=== PATIENT | female | born 1995 | race Caucasian/White ===

== ENCOUNTER → 2018-02-28 09:29 | Outpatient (CLI) | payer OTHER, SELFPAY ==
[2018-02-28 10:47] LABS: Follicle Stimulating Hormone 5.6 mIU/mL; Luteinizing Hormone 17.1 mIU/mL; Prolactin 9.1 ng/mL; T4 Free Direct 1.05 ng/dL (0.76-1.46); Thyroid Stim Hormone (TSH) 1.63 uIU/mL (0.358-3.74)
[2018-02-28 13:45] LABS: hCG Titer Quant., Serum < 1 mIU/mL (<9 non-preg)
[2018-03-04 15:30] LABS: DHEA Sulfate 656.5 ug/dL (110.0-431.7); Testosterone, % Free 2.48 % (0.50-2.80); Testosterone, Free 1.81 ng/dL (0.10-0.85); Testosterone, Total 73 ng/dL (8-48)
[2018-03-05 10:28] LABS: Sex Hormone-binding Globulin 29.8 nmol/L (24.6-122.0)
== END ==
PROVIDERS: Family Provider Family Medicine; PCP Family Medicine; Visit Provider Dermatology
DX: E28.2 Polycystic ovarian syndrome (principal); L70.0 Acne vulgaris; L68.9 Hypertrichosis, unspecified; L21.8 Other seborrheic dermatitis
CPT/HCPCS: 36415; 82627; 83001; 83002; 84146; 84270; 84402; 84403; 84439; 84443; 84702; 82626

== ENCOUNTER → 2018-06-03 14:08 | Outpatient (CLI) | payer OTHER, SELFPAY ==
[2018-06-03 15:15] LABS: Potassium 4.1 mmol/L (3.5-5.1)
== END ==
PROVIDERS: Family Provider Family Medicine; PCP Family Medicine; Referring Provider Dermatology; Visit Provider Dermatology
DX: L70.0 Acne vulgaris (principal)
CPT/HCPCS: 36415; 84132

== ENCOUNTER → 2019-01-22 | Outpatient (CLI) | payer BC, SELFPAY ==
[2019-01-22 08:32] VITALS: BMI 37.0
[2019-01-29 15:56] LABS: HPV Reflexed? NOT INDICATED
== END | disposition home or self-care (01) ==
LOC: LABSPEC 17:18
PROVIDERS: Family Provider Family Medicine; PCP Family Medicine; Referring Provider Obstetrics & Gynecology; Visit Provider Obstetrics & Gynecology
DX: Z12.4 Encounter for screening for malignant neoplasm of cervix (principal)
CPT/HCPCS: 87624; 88175; G0145

== ENCOUNTER → 2020-05-14 11:15 | Outpatient (CLI) | payer OTHER, SELFPAY ==
[2019-05-31 08:16] VITALS: BMI 37.0
[2020-05-14 13:03] LABS: Potassium 4.3 mmol/L (3.5-5.1)
== END ==
PROVIDERS: PCP Family Medicine; Referring Provider Dermatology; Visit Provider Dermatology
DX: L70.0 Acne vulgaris (principal); Z79.899 Other long term (current) drug therapy
CPT/HCPCS: 36415; 84132

== ENCOUNTER 2020-12-08 14:29 | Outpatient (RCR) | payer OTHER, SELFPAY ==
[2020-06-16 11:36] VITALS: BMI 40.1
== END 2021-02-08 23:59 ==
LOC: IMMUN 14:29
PROVIDERS: PCP Family Medicine; Referring Provider Family Medicine; Visit Provider Family Medicine
DX: Z23 Encounter for immunization (principal)
CPT/HCPCS: 0001A; 0002A; 91300

== ENCOUNTER → 2021-06-24 | Outpatient (CLI) | payer BC, SELFPAY ==
[2021-06-28 14:57] LABS: HPV Reflexed? NOT INDICATED
== END | disposition home or self-care (01) ==
LOC: LABSPEC 12:19
PROVIDERS: PCP Family Medicine; Referring Provider Obstetrics & Gynecology; Visit Provider Obstetrics & Gynecology
DX: Z12.4 Encounter for screening for malignant neoplasm of cervix (principal)
CPT/HCPCS: 88175; G0145

== ENCOUNTER → 2023-09-17 | Outpatient (CLI) | payer OTHER, SELFPAY ==
[2023-09-21 22:54] LABS: HPV Reflexed? NOT INDICATED
== END | disposition home or self-care (01) ==
LOC: LABSPEC 13:23
PROVIDERS: PCP Family Medicine; Referring Provider Obstetrics & Gynecology; Visit Provider Obstetrics & Gynecology
DX: Z12.4 Encounter for screening for malignant neoplasm of cervix (principal)
CPT/HCPCS: 88175; G0145

== ENCOUNTER → 2024-01-04 | Outpatient (CLI) | payer OTHER, SELFPAY ==
[2024-01-04 10:02] LABS: Absolute Lymphocyte Count 2.54 X10^3/uL (0.83-4.51); Basophil# 0.04 X10^3/uL; Basophil% 0.5 % (0-1); Eosinophil# 0.09 X10^3/uL; Eosinophils% 1.1 % (0-5); Hematocrit 44.3 % (37-47); Hemoglobin 14.2 g/dL (12.0-15.0); Lymphocyte # 2.54 X10^3/ul (0.83-4.51); Lymphocyte % 31.6 % (19-41); Mean Corp Hgb Conc 32.1 g/dL (32-36); Mean Corpuscular Hgb 26.6 pg (27.0-32.0); Mean Corpuscular Volume 83.1 fL (81-99); Mean Platelet Vol. 8.8 fl (6.2-12.0); Monocyte# 0.39 X10^3/uL; Monocyte% 4.8 % (0-10); NRBC Flagged by Analyzer 0 % (0-5); Neutrophil # 4.96 X10^3/uL (2.7-7.7); Neutrophil % 61.6 % (47-70); Platelet Count 323 K/mm3 (150-450); RBC Distribution Width CV 12.9 % (11.6-14.6); RBC Distribution Width SD 38.7 fl (35.1-43.9); Red Blood Count 5.33 M/mm3 (4.2-5.4); White Blood Count 8.1 K/mm3 (4.4-11.0)
[2024-01-04 10:27] LABS: ALB/GLOB Ratio 0.8 RATIO (0.9-2.4); AST(SGOT) 23 U/L (15-37); Alanine Aminotransfer ALT/SGPT 40 U/L (13-56); Albumin, Serum 3.7 g/dL (3.2-5.0); Alkaline Phosphatase 92 U/L (45-117); Anion Gap 8 (5-15); BUN 10 mg/dL (7-18); BUN/Creat Ratio 12.9 RATIO (10-20); Calcium,Total 9.8 mg/dL (8.5-10.1); Chloride 105 mmol/L (98-107); Cholesterol 239 mg/dL (200); Creatinine, Serum 0.78 mg/dL (0.55-1.02); EST Glomerular Filtration Rate 95 mL/min (>60); Est Glom Filt Rate - Afr Amer 115 mL/min (>60); Globulin 4.6 g/dL (2.2-4.2); Glucose 93 mg/dL (74-106); High Density Lipoprotein 48 mg/dL; Potassium 3.6 mmol/L (3.5-5.1); Protein, Total 8.3 g/dL (6.4-8.2); Sodium Level 139 mmol/L (136-145); Triglycerides 130 mg/dL; Very Low Density Lipoprotein 26 mg/dL (5-40)
[2024-01-04 11:24] LABS: Hemoglobin A1c 5.3 % (3.8-5.6)
== END | disposition home or self-care (01) ==
LOC: MTLAB 07:57
PROVIDERS: PCP Family Medicine; Referring Provider Family Medicine; Visit Provider Family Medicine
DX: Z00.00 Encounter for general adult medical examination without abnormal findings (principal); E28.2 Polycystic ovarian syndrome
CPT/HCPCS: 36415; 80053; 80061; 83036; 85025

== ENCOUNTER → 2024-10-13 | Outpatient (CLI) | payer OTHER, SELFPAY ==
[2024-10-13 17:47] LABS: ALB/GLOB Ratio 0.8 RATIO (0.9-2.4); AST(SGOT) 51 U/L (15-37); Alanine Aminotransfer ALT/SGPT 81 U/L (13-56); Albumin, Serum 3.6 g/dL (3.2-5.0); Alkaline Phosphatase 96 U/L (45-117); Anion Gap 7 (5-15); BUN 12 mg/dL (7-18); BUN/Creat Ratio 18.2 RATIO (10-20); Calcium,Total 9.5 mg/dL (8.5-10.1); Chloride 104 mmol/L (98-107); Creatinine, Serum 0.66 mg/dL (0.55-1.02); EST Glomerular Filtration Rate 114 mL/min (>60); Est Glom Filt Rate - Afr Amer 138 mL/min (>60); Globulin 4.3 g/dL (2.2-4.2); Glucose 101 mg/dL (74-106); Potassium 3.7 mmol/L (3.5-5.1); Protein, Total 7.9 g/dL (6.4-8.2); Sodium Level 137 mmol/L (136-145)
[2024-10-13 19:14] LABS: Absolute Lymphocyte Count 1.08 X10^3/uL (0.83-4.51); Absolute Neutrophil Count 2.5 X10^3/uL (2.0-7.7); Basophil# 0.03 X10^3/uL; Basophil% 0.7 % (0-1); Eosinophil# 0.14 X10^3/uL; Eosinophils% 3.1 % (0-5); Hematocrit 41.1 % (37-47); Hemoglobin 13.1 g/dL (12.0-15.0); Lymphocyte # 1.08 X10^3/ul (0.83-4.51); Lymphocyte % 23.9 % (19-41); Mean Corp Hgb Conc 31.9 g/dL (32-36); Mean Corpuscular Hgb 26.7 pg (27.0-32.0); Mean Corpuscular Volume 83.7 fL (81-99); Mean Platelet Vol. 9.4 fl (6.2-12.0); Monocyte# 0.74 X10^3/uL; Monocyte% 16.4 % (0-10); NRBC Flagged by Analyzer 0 % (0-5); Neutrophil # 2.52 X10^3/uL (2.7-7.7); Neutrophil % 55.7 % (47-70); Platelet Count 222 K/mm3 (150-450); RBC Distribution Width CV 12.9 % (11.6-14.6); RBC Distribution Width SD 38.8 fl (35.1-43.9); Red Blood Count 4.91 M/mm3 (4.2-5.4); White Blood Count 4.5 K/mm3 (4.4-11.0)
== END | disposition home or self-care (01) ==
LOC: BWCLAB 15:52
PROVIDERS: PCP Family Medicine; Visit Provider Obstetrics & Gynecology
DX: Z00.00 Encounter for general adult medical examination without abnormal findings (principal); E28.2 Polycystic ovarian syndrome; Z13.29 Encounter for screening for other suspected endocrine disorder; Z13.21 Encounter for screening for nutritional disorder
CPT/HCPCS: 36415; 80053; 82652; 84443; 85025

== ENCOUNTER → 2025-03-25 | Outpatient (CLI) | payer OTHER, SELFPAY ==
--- NOTE | 2025-03-25 09:22 | US_ITS ---
EXAM: DIAG MAMM W/CAD, BILAT; BILAT BRST ROBINSON STAND ALONE; BREAST LIMITED UNILATERAL 03/25/2025 CLINICAL HISTORY: 29-year-old female presents with palpable concern in the right breast. No family history of breast cancer. TECHNIQUE: DIAG MAMM W/CAD, BILAT; BILAT BRST [facility] STAND ALONE; BREAST LIMITED UNILATERAL. COMPARISON: Baseline examination, no priors. FINDINGS: MAMMOGRAM: TISSUE DENSITY: There are scattered areas of fibroglandular density. Right breast: There is a triangle skin marker indicating the area of palpable concern in the upper-outer right breast. Underlying the skin marker are no definite mammographic findings. Left breast: There are no suspicious masses, grouped calcifications or architectural distortions in the left breast. ULTRASOUND: Ultrasound performed of the upper-outer quadrant of the right breast in the area of patient's palpable concern demonstrates an circumscribed oval hypoechoic mass at 10 o'clock 5 cm from the nipple, measuring 0.6 x 0.5 x 0.2 cm. US/Breast Limited Unilateral IMPRESSION: Right breast mass at 10 o'clock is probably benign. Recommend short interval s ix-month follow-up diagnostic ultrasound for further evaluation. OVERALL FINAL ASSESSMENT BI-RADS 3: PROBABLY BENIGN. RECOMMENDATION: 6 Month Follow-up A letter with findings and recommendations will be mailed to the patient. Reading Location: [id number]
--- NOTE | 2025-03-25 10:39 | BI_ITS ---
EXAM: DIAG MAMM W/CAD, BILAT; BILAT BRST ROBINSON STAND ALONE; BREAST LIMITED UNILATERAL 03/25/2025 CLINICAL HISTORY: 29-year-old female presents with palpable concern in the right breast. No family history of breast cancer. TECHNIQUE: DIAG MAMM W/CAD, BILAT; BILAT BRST [facility] STAND ALONE; BREAST LIMITED UNILATERAL. COMPARISON: Baseline examination, no priors. FINDINGS: MAMMOGRAM: TISSUE DENSITY: There are scattered areas of fibroglandular density. Right breast: There is a triangle skin marker indicating the area of palpable concern in the upper-outer right breast. Underlying the skin marker are no definite mammographic findings. Left breast: There are no suspicious masses, grouped calcifications or architectural distortions in the left breast. ULTRASOUND: Ultrasound performed of the upper-outer quadrant of the right breast in the area of patient's palpable concern demonstrates an circumscribed oval hypoechoic mass at 10 o'clock 5 cm from the nipple, measuring 0.6 x 0.5 x 0.2 cm. BI/Bilat Brst Robinson Stand Alone IMPRESSION: Right breast mass at 10 o'clock is probably benign. Recommend short interval s ix-month follow-up diagnostic ultrasound for further evaluation. OVERALL FINAL ASSESSMENT BI-RADS 3: PROBABLY BENIGN. RECOMMENDATION: 6 Month Follow-up A letter with findings and recommendations will be mailed to the patient. Reading Location: [id number]
== END | disposition home or self-care (01) ==
PROVIDERS: PCP Family Medicine; Referring Provider Nurse Practitioner Family; Visit Provider Nurse Practitioner Family
DX: N63.11 Unspecified lump in the right breast, upper outer quadrant (principal)
CPT/HCPCS: 76642; 77062; 77066; G0279

== ENCOUNTER → 2025-06-30 | Outpatient (CLI) | payer OTHER, SELFPAY ==
--- OUTSIDE RECORDS SUMMARY | 2025-06-30 20:13 | XMS RPT_ITS | CCD ---
Author Organization [facility] CliniSysd Care Team Providers Care Manufacturing Recruiter Name Role Phone Dr. Anne Heaton Primary Care Provider [phone] Anne Heaton Referring Provider JESSE Barrow Attending Provider [phone] Dr. nAne Heaton Primary Care Provider [phone] Anne Heaton Referring Provider Dr. Margaux Guthrie Attending Provider Dr. Anne Heaton Primary Care Provider [phone] Anne Heaton Referring Provider Dr. Margaux Guthrie Attending Provider Dr. Bruna Walker MD Primary Care Provider Dr. Bruna Walker MD Referring Provider Janis Jimenez Attending Provider Janis Jimenez Referring Provider Amada CUENCA, Dr. Hope Attending Provider [phone] Jayy Ybarra Attending Unavailable Miedel, Bruna Referring Unavailable Miedel, Bruna Primary Care Unavailable Janis Manzano Attending Unavailable Miedel, Bruna Referring Unavailable Miedel, Bruna Primary Care Unavailable Rita Monroe Attending Unavailable Miedel, Bruna Referring Unavailable Miedel, Bruna Primary Care Unavailable Tigistedel Bruna Attending Unavailable Tigistedel, Bruna Referring Unavailable Miedel, Bruna Primary Care Unavailable Janis Manzano Attending Unavailable Janis Manzano Referring Unavailable [facility] Bruna Primary Care Unavailable Rita Monroe Attending Unavailable [facility] Bruna Primary Care Unavailable [facility] Bruna Primary Care Unavailable MncoraZeinabh Referring Unavailable Steve Barrow Attending Unavailable Medications Current Medications Medication Drug Class(es) Dates Sig (Normalized) Sig (Original) Drospirenone-Ethin yl Estradiol (20 sources) Progestin, Estrogen Start: 10-14-2024 take 3 tablets by mouth once daily Drospirenone-Ethi nyl Estradiol (Vestura (28)) 3-0.02 mg tablet Active 1 {tbl} PO DAILY 84 October 14, 2024 12:01pm Start: 09-22-2024 End: 10-14-2024 take 3 tablets by mouth once daily Drospirenone-Ethinyl Estradiol (Vestura (28)) 3-0.02 mg tablet Discontinued 1 {tbl} PO DAILY 84 September 22, 2024 11:05am October 14, 2024 12:01pm Start: 07-18-2024 End: 09-22-2024 take 3 tablets by mouth once daily Drospirenone-Ethinyl Estradiol (Vestura (28)) 3-0.02 mg tablet Discontinued 1 {tbl} PO DAILY 84 July 18, 2024 11:28am September 22, 2024 11:05am Start: 01-21-2024 End: 07-18-2024 take 3 tablets by mouth once daily Drospirenone-Ethinyl Estradiol (Vestura (28)) 3-0.02 mg tablet Discontinued 1 {tbl} PO DAILY 84 January 21, 2024 4:05pm July 18, 2024 11:28am Start: 09-18-2023 End: 01-21-2024 take 3 tablets by mouth once daily Drospirenone-Ethinyl Estradiol (Vestura (28)) 3-0.02 mg tablet Discontinued 1 {tbl} PO DAILY 90 90 3 September 18, 2023 4:29pm January 21, 2024 4:06pm Start: 09-18-2023 Drospirenone-E thinyl Estradiol (Vestura (28)) 3-0.02 mg tablet Active 1 TABLET PO DAILY 90 90 September 18, 2023 4:29pm Start: 09-18-2023 Drospirenone-E thinyl Estradiol (Vestura (28)) 3-0.02 mg tablet Active 1 TABLET PO DAILY 90 September 18, 2023 3:29pm Start: 09-17-2023 End: 09-18-2023 take 3 tablets by mouth once daily Drospirenone-Ethinyl Estradiol (Vestura (28)) 3-0.02 mg tablet Discontinued 1 {tbl} PO DAILY 90 90 September 17, 2023 12:49pm September 18, 2023 4:29pm Start: 09-17-2023 End: 09-18-2023 Drospirenone-Ethinyl Estradi ol (Vestura (28)) 3-0.02 mg tablet Discontinued 1 TABLET PO DAILY 90 September 17, 2023 12:49pm September 18, 2023 4:29pm Start: 09-17-2023 End: 09-18-2023 Drospirenone-Ethinyl Estradi ol (Vestura (28)) 3-0.02 mg tablet Discontinued 1 TABLET PO DAILY 90 September 17, 2023 11:49am September 18, 2023 3:29pm Start: 01-11-2023 End: 09-17-2023 take 3 tablets by mouth once daily Drospirenone-Ethinyl Estradiol (Vestura (28)) 3-0.02 mg tablet Discontinued 1 {tbl} PO DAILY 90 90 January 11, 2023 9:34am September 17, 2023 12:49pm Start: 01-11-2023 End: 09-17-2023 Drospirenone-Ethinyl Estradi ol (Vestura (28)) 3-0.02 mg tablet Discontinued 1 TABLET PO DAILY 90 January 11, 2023 9:34am September 17, 2023 12:49pm Start: 01-11-2023 End: 09-17-2023 Drospirenone-Ethinyl Estradi ol (Vestura (28)) 3-0.02 mg tablet Discontinued 1 TABLET PO DAILY 90 January 11, 2023 8:34am September 17, 2023 11:49am Start: 08-16-2022 End: 01-11-2023 take 3 tablets by mouth once daily Drospirenone-Ethinyl Estradiol (Vestura (28)) 3-0.02 mg tablet Discontinued 1 {tbl} PO DAILY 90 90 August 16, 2022 10:03am January 11, 2023 9:35am Start: 08-16-2022 End: 01-11-2023 Drospirenone-Ethinyl Estradi ol (Vestura (28)) 3-0.02 mg tablet Discontinued 1 TABLET PO DAILY August 16, 2022 10:03am January 11, 2023 9:35am Start: 08-16-2022 End: 01-11-2023 Drospirenone-Ethinyl Estradi ol (Vestura (28)) 3-0.02 mg tablet Discontinued 1 TABLET PO DAILY August 16, 2022 9:03am January 11, 2023 8:35am Start: 07-03-2022 End: 08-16-2022 Drospirenone-Ethinyl Estradi ol (Vestura (28)) 3-0.02 mg tablet Discontinued 0 .ROUTE .COMPLEX 84 July 03, 2022 2:17pm August 16, 2022 10:04am TAKE 1 TABLET BY MOUTH EVERY DAY Start: 07-03-2022 End: 08-16-2022 Drospirenone-Ethinyl Estradi ol (Vestura (28)) 3-0.02 mg tablet Discontinued 0 .ROUTE .COMPLEX 84 July 03, 2022 2:17pm August 16, 2022 10:04am TAKE 1 TABLET BY MOUTH EVERY DAY Start: 07-03-2022 End: 08-16-2022 Drospirenone-Ethinyl Estradi ol (Vestura (28)) 3-0.02 mg tablet Discontinued 0 .ROUTE .COMPLEX 84 July 03, 2022 1:17pm August 16, 2022 9:04am TAKE 1 TABLET BY MOUTH EVERY DAY Start: 07-03-2022 Drospirenone-E thinyl Estradiol (Vestura (28)) 3-0.02 mg tablet Active 0 .ROUTE .COMPLEX 84 July 03, 2022 1:17pm TAKE 1 TABLET BY MOUTH EVERY DAY Start: 02-07-2022 End: 07-03-2022 Drospirenone-Ethinyl Estradi ol 3-0.02 mg tablet Discontinued 1 {tbl} PO daily 84 4 February 07, 2022 11:16am July 03, 2022 2:17pm Start: 02-07-2022 End: 07-03-2022 take 1 tablet by mouth once daily Drospirenone-Ethinyl Estradiol Discontinued 1 TABLET PO daily 84 February 07, 2022 11:16am July 03, 2022 2:17pm Start: 02-07-2022 End: 07-03-2022 take 1 tablet by mouth once daily Drospirenone-Ethinyl Estradiol Discontinued 1 TABLET PO daily 84 February 07, 2022 10:16am July 03, 2022 1:17pm Start: 06-23-2021 End: 02-07-2022 Drospirenone-Ethinyl Estradi ol 3-0.02 mg tablet Discontinued 1 {tbl} PO daily 84 June 23, 2021 3:55pm February 07, 2022 11:22am Start: 06-23-2021 End: 02-07-2022 take 1 tablet by mouth once daily Drospirenone-Ethinyl Estradiol Discontinued 1 TABLET PO daily 84 June 23, 2021 3:55pm February 07, 2022 11:22am Start: 06-23-2021 End: 02-07-2022 take 1 tablet by mouth once daily Drospirenone-Ethinyl Estradiol Discontinued 1 TABLET PO daily 84 June 23, 2021 2:55pm February 07, 2022 10:22am Start: 06-16-2020 End: 06-23-2021 take 3 tablets by mouth once daily Drospirenone-Ethinyl Estradiol (Gianvi (28)) 3-0.02 mg tablet Discontinued 1 {tbl} PO daily 84 June 16, 2020 11:48am June 23, 2021 3:55pm Start: 06-16-2020 End: 06-23-2021 Drospirenone-Ethinyl Estradi ol (Gianvi (28)) 3-0.02 mg tablet Discontinued 1 TABLET PO daily June 16, 2020 11:48am June 23, 2021 3:55pm Start: 06-16-2020 End: 06-23-2021 Drospirenone-Ethinyl Estradi ol (Gianvi (28)) 3-0.02 mg tablet Discontinued 1 TABLET PO daily June 16, 2020 10:48am June 23, 2021 2:55pm Start: 03-23-2020 End: 06-16-2020 take 3 tablets by mouth once daily Drospirenone-Ethinyl Estradiol (Gianvi (28)) 3-0.02 mg tablet Discontinued 1 {tbl} PO daily 84 March 23, 2020 7:43am June 16, 2020 11:50am Start: 03-23-2020 End: 06-16-2020 Drospirenone-Ethinyl Estradi ol (Gianvi (28)) 3-0.02 mg tablet Discontinued 1 TABLET PO daily March 23, 2020 7:43am June 16, 2020 11:50am Start: 03-23-2020 End: 06-16-2020 Drospirenone-Ethinyl Estradi ol (Gianvi (28)) 3-0.02 mg tablet Discontinued 1 TABLET PO daily March 23, 2020 6:43am June 16, 2020 10:50am Start: 02-28-2019 End: 03-23-2020 take 3 tablets by mouth once daily Drospirenone-Ethinyl Estradiol (Gianvi (28)) 3-0.02 mg tablet Discontinued 1 {tbl} PO daily 84 February 28, 2019 10:45am March 23, 2020 7:43am Start: 02-28-2019 End: 03-23-2020 Drospirenone-Ethinyl Estradi ol (Gianvi (28)) 3-0.02 mg tablet Discontinued 1 TABLET PO daily February 28, 2019 10:45am March 23, 2020 7:43am Start: 02-28-2019 End: 03-23-2020 Drospirenone-Ethinyl Estradi ol (Gianvi (28)) 3-0.02 mg tablet Discontinued 1 TABLET PO daily February 28, 2019 9:45am March 23, 2020 6:43am Start: 11-28-2018 End: 02-28-2019 take 3 tablets by mouth once daily Drospirenone-Ethinyl Estradiol (Gianvi (28)) 3-0.02 mg tablet Discontinued 1 {tbl} PO daily November 28, 2018 4:27pm February 28, 2019 10:45am Start: 11-28-2018 End: 02-28-2019 Drospirenone-Ethinyl Estradi ol (Gianvi (28)) 3-0.02 mg tablet Discontinued 1 TABLET PO daily November 28, 2018 4:27pm February 28, 2019 10:45am Start: 11-28-2018 End: 02-28-2019 Drospirenone-Ethinyl Estradi ol (Gianvi (28)) 3-0.02 mg tablet Discontinued 1 TABLET PO daily November 28, 2018 3:27pm February 28, 2019 9:45am Start: 11-06-2018 End: 11-28-2018 take 3 tablets by mouth once daily Drospirenone-Ethinyl Estradiol (Gianvi (28)) 3-0.02 mg tablet Discontinued 1 {tbl} PO daily November 06, 2018 1:00am November 28, 2018 4:27pm Start: 11-06-2018 End: 11-28-2018 Drospirenone-Ethinyl Estradi ol (Gianvi (28)) 3-0.02 mg tablet Discontinued 1 TABLET PO daily November 06, 2018 1:00am November 28, 2018 4:27pm Start: 11-06-2018 End: 11-28-2018 Drospirenone-Ethinyl Estradi ol (Gianvi (28)) 3-0.02 mg tablet Discontinued 1 TABLET PO daily November 06, 2018 12:00am November 28, 2018 3:27pm Completed/Discontinued Medications Medication Drug Class(es) Dates Sig (Normalized) Sig (Original) benzonatate 100 mg oral capsule (3 sources) Non-narcotic Antitussive Start: 4 End: 5 take 2 capsules by mouth three times daily as needed for cough Benzonatate 100 mg capsule Discontinued 200 mg PO THREE TIMES A DAY as needed for cough 30 July 10, 2024 1:00am October 13, 2024 4:06pm cephalexin 500 mg oral capsule (7 sources) Cephalosporin Antibacterial Start: 2 End: 2 take 1 capsule by mouth every twelve hours Cephalexin 500 mg capsule Discontinued 500 mg PO Q12H 20 10 October 10, 2021 1:00am October 19, 2021 1:00am October 20, 2021 1:03am dexamethasone 6 mg oral tablet (3 sources) Corticosteroid Start: 4 End: 5 take 1 tablet by mouth once daily Dexamethasone 6 mg tablet Discontinued 6 mg PO DAILY 5 0 July 10, 2024 1:00am October 13, 2024 4:06pm methylPREDNISolone 4 mg oral tablet (3 sources) Corticosteroid Start: 4 End: 4 take 1 tablet by mouth once Methylprednisolone (Medrol (Jamie)) 4 mg tablets,dose pack Discontinued 4 mg PO per package directions 21 6 0 May 23, 2024 12:00am May 28, 2024 12:00am May 29, 2024 12:07am naproxen 500 mg oral tablet (12 sources) Nonsteroidal Anti-inflammatory Drug Start: 4 End: 5 take 1 tablet by mouth twice daily as needed for pain Naproxen 500 mg tablet Discontinued 500 mg PO TWICE A DAY as needed for pain 60 4 September 17, 2023 12:49pm October 13, 2024 4:07pm administer with food or milk Start: 06-16-2020 End: 06-23-2021 take 1 tablet by mouth twice daily as needed for pain Naproxen 500 mg tablet Discontinued 500 mg PO TWICE A DAY as needed for pain 60 4 June 16, 2020 12:00am June 23, 2021 3:17pm administer with food or milk spironolactone 50 mg oral tablet (20 sources) Aldosterone Antagonist Start: 06-16-2020 End: 10-14-2024 take 1 tablet by mouth twice daily Spironolactone 50 mg tablet Discontinued 50 mg PO TWICE A DAY 180 4 October 01, 2024 3:29pm October 14, 2024 12:02pm Start: 01-22-2019 End: 06-16-2020 take 1 tablet by mouth once daily Spironolactone 100 mg tablet Discontinued 100 mg PO DAILY January 22, 2019 12:00am June 16, 2020 11:49am sulfacetamide sodium 100 mg/ml ophthalmic solution (7 sources) Sulfonamide Antibacterial Start: 03-11-2019 End: 03-18-2019 Sulfacetamide Sodium (Bleph-10) 10 % drops Discontinued 1 NMA OPHTHALMIC Q3H 15 7 0 March 11, 2019 12:00am March 17, 2019 12:00am March 18, 2019 12:07am Start: 03-11-2019 End: 03-18-2019 Sulfacetamide Sodium (Bleph- 10) 10 % drops Discontinued 1 DRP OPHTHALMIC Q3H 15 7 March 11, 2019 12:00am March 18, 2019 12:07am Problems Active Problems Problem Classification Problem Date Documented Da te Episodic/Chronic Acute bronchitis (3 sources) Acute bronchitis; Translations: [Acute bronchitis, unspecified] 07-11-2024 Episodic Anxiety disorders (4 sources) Anxiety; Translations: [Anxiety disorder, unspecified] Onset: 10-13-2024 10-13-2024 Chronic Comment on above: encouraged counselin g Immunizations and screening for infectious disease (3 sources) Contact with and (suspected) exposure to other viral communicable diseases; Translations: [Contact with or suspected exposure to other viral communicable disease] 07-11-2024 Episodic Inflammation; infection of eye (except that caused by tuberculosis or sexually transmitteddisease) (14 sources) Acute infectious conjunctivitis; Translations: [Unspecified acute conjunctivitis, unspecified eye] 03-11-2019 Episodic Mood disorders (4 sources) Dysthymia; Translations: [Dysthymic disorder] Onset: 10-13-2024 10-13-2024 Chronic Nonmalignant breast conditions (7 sources) Breast lump; Translations: [Unspecified lump in unspecified breast] Onset: 03-31-2025 03-12-2025 Episodic Other endocrine disorders (7 sources) Polycystic ovary syndrome; Translations: [Polycystic ovarian syndrome] 06-23-2021 Chronic Comment on above: ocp spironolactone, discussed weight management. labs ordered Other endocrine disorders (1 source) Polycystic ovarian syndrome; Translations: [Polycystic ovarian syndrome] Onset: 10-13-2024 Chronic Other upper respiratory infections (3 sources) Acute pharyngitis; Translations: [Acute pharyngitis, unspecified] 05-23-2024 Episodic Residual codes; unclassified (1 source) Obstructive sleep apnea (adult) (pediatric); Translations: [Obstructive sleep apnea (adult) (pediatric)] Onset: 06-29-2025 Chronic Viral infection (3 sources) Disease caused by 2019-nCoV; Translations: [COVID-19] 07-11-2024 Episodic Past or Other Problems Problem Classification Problem Date Documented Da te Episodic/Chronic Other screening for suspected conditions (not mental disorders or infectious disease) (2 sources) Encounter for screening for other suspected endocrine disorder; Translations: [Encounter for screening for nutritional disorder] Onset: 10-13-2024 Episodic Results Test Name Value Interpretation Reference Range Facility Surgery Visit Reporton 04-08 Surgery Visit Report [facility] [address] [place] [address] OFFICE VISIT Date of Service: 04/08/25 MR#: [id number] Acct: [id number] Name: UZMA HOROWITZ Rep #: [id number] : 1995 Provider: Dr. Jayy brush MD Age/Sex: 29/F Location: [facility] Status: Signed Intake Vital Signs 03/12/25 15:33 04/08/25 09:05 Height 5 ft 3 in 5 ft 3 in Weight: 231 lb 4 oz 232 lb BMI 40.9 41.1 BP 132/86 H 119/80 Blood Pressure Location Rt brachial Position Sitting Respiration 17 Pulse 101 H Pulse Source Monitor Pulse Oximetry (%) 99 Oxygen Delivery Method room air Intake Visit Reasons: 2ND OPINION BREAST Chief Complaint: 2nd opinion breast Is patient in pain?: No Allergies No Known Allergies Allergy (Verified 04/08/25 09:06) Medications ???Medication ???Instructions ???Recorded ???Confirmed ???Type drospirenone 3 mg-ethinyl 1 tab PO DAILY #84 TABLETS 5 04/08/25 Rx estradiol 0.02 mg tablet (Vestura (28)) spironolactone 50 mg tablet 50 mg PO BID #180 TABLETS 10/14/24 04/08/25 Rx PFSH Medical History Cervical cancer screening PCOS (polycystic ovarian syndrome) Family History Grandfather Hypertension Diabetes Social History current occupational status: employed current occupation: [employer] Smoking Status: Never smoker alcohol intake: current details: social substance use type: does not use caffeine: Yes what type of physical activity do you participate in: aerobics frequency: 3-4 times per week seatbelt use: always do you feel safe at home: Yes additional social history: Single HPI HPI HPI: Patient is a 29-year-old female here with a breast mass on the right. This was found on ultrasound after she felt something in the upper area of her breast. This mass is in the 10 o'clock position. It is not in the area that she was feeling. She does not have any nipple discharge. She denies family history of breast cancer. ROS General General: No weight change, appetite, fatigue, colon cancer, breast cancer or weakness HEENT HEENT: No difficulty swallowing, eye injury, eye surgery, swollen glands or hoarseness Endo Endocrine: No thyroid disease, diabetes mellitus, thyroid cancer, Hair loss, heat intolerance or cold intolerance Skin Skin: No rash or changing moles Breast Breast: Yes right breast lump, breast pain and abnormal US; No left breast lump, nipple discharge, abnormal mammogram or breast enlargement Musc Musculoskeletal: No back problems, arthritis, rheumatoid arthritis, gout or joint pain Cardio Cardiovascular: No murmur, pacemaker, heart disease, atrial fibrillation, high blood pressure, heart attack, heart stent, palpitations, shortness of breath with exertion or chest pain Psych Psychiatric: No depression, anxiety or hearing voices Resp Respiratory: No shortness of breath, No sleep apnea, No cough, No COPD, No asthma, No emphysema and No wheezing Gastro Gastrointestinal: No abdominal pain, No nausea or vomiting, No diarrhea, No constipation, No blood in stool, No acid reflux, No hemorrhoids, No ulcers, No gallbladder problem and No black,tarry stools Leonardo Hematologic: No blood thinners, No blood disorders, No bleeding, No anemia and No blood clots Neuro Neurologic: No system reviewed and no additional complaints, except as documented, No as per HPI, No abnormal gait, No abnormal hearing, No abnormal movements, No abnormal speech, No behavioral change s, No burning sensations, No confusion, No convulsions, No disequilibrium, No dizziness, No localized weakness, No frequent falls, No headache(s), No lack of coordination, No loss of vision, No memory loss, No numbness, No other visual disturbances, No radicular pain, No restless legs, No sensory deficit, No syncope, No tingling, No tremor(s), No weakness and No other Exam Const General: cooperative Orientation: alert and oriented x3 HENMT Head: normal to inspection Neck Neck: normal visual inspection and full ROM Chest Chest palpation inspection: normal inspection of the chest Resp Effort Inspection: normal respiratory effort Auscultation: clear to auscultation bilaterally Cardio Rate: regular rate Rhythm: regular rhythm GI Inspection: non-distended Palpation: soft and nontender Skin General: no rashes or lesions noted Neuro General: patient alert and patient oriented x3 Extrem General: full ROM Psych Appearance: grossly normal Mental Status: mental status grossly normal Assessment and Plan Assessment and Plan (1) Breast lump: Status: Acute Plan: The patient has a sm (more content not included)... Normal [facility] Bilat Brst Carlos Stand Aloneo n [facility] Imaging Services [address] [place] [id number] Bilat Brst Carlos Stand Alone MR#: [id number] Acct: [id number] Name: UZMA HOROWITZ Rep #: [id number] : 1995 F 29 From: Ciera Jacobs MD PCP: Dr. Bruna Walker MD Status: [facility] Study: Bilat Brst Carlos Stand Alone Date of Exam: 03/04 11/25 Exam# [id number] Ordering Dr: Janis Manzano [facility] EXAM: DIAG MAMM W/CAD, BILAT; BILAT BRST CARLOS STAND ALONE; BREAST LIMITED UNILATERAL 03/25/2025 CLINICAL HISTORY: 29-year-old female presents with palpable concern in the right breast. No family history of breast cancer. TECHNIQUE: DIAG MAMM W/CAD, BILAT; BILAT BRST CARLOS STAND ALONE; BREAST LIMITED UNILATERAL. COMPARISON: Baseline examination, no priors. FINDINGS: MAMMOGRAM: TISSUE DENSITY: There are scattered areas of fibroglandular density. Right breast: There is a triangle skin marker indicating the area of palpable concern in the upper-outer right breast. Underlying the skin marker are no definite mammographic findings. Left breast: There are no suspicious masses, grouped calcifications or architectural distortions in the left breast. ULTRASOUND: Ultrasound performed of the upper-outer quadrant of the right breast in the area of patient's palpable concern demonstrates an circumscribed oval hypoechoic mass at 10 o'clock 5 cm from the nipple, measuring 0.6 x 0.5 x 0.2 cm. BI/Bilat Brst Carlos Stand Alone IMPRESSION: Right breast mass at 10 o'clock is probably benign. Recommend short interval six-month follow-up diagnostic ultrasound for further evaluation. OVERALL FINAL ASSESSMENT BI-RADS 3: PROBABLY BENIGN. RECOMMENDATION: 6 Month Follow-up A letter with findings and recommendations will be mailed to the patient. Reading Location: [id number] CC: KODI Manzano; Dr. Bruna Walker MD Labor Economist: Signed Normal [facility] Breast Limited Unilateralon 03-25-2025 Breast Limited Unilateral [facility] Imaging Services [address] [place] [id number] Breast Limited Unilateral MR#: [id number] Acct: [id number] Name: UZMA HOROWITZ Rep #: [id number] : 1995 F 29 From: Ciera Jacobs MD PCP: Dr. Bruna Walker MD Status: [facility] Study: Breast Limited Unilateral Date of Exam: Exam# [id number] Ordering Dr: Janis Manzano EXAM: DIAG MAMM W/CAD, BILAT; BILAT BRST CAROLS STAND ALONE; BREAST LIMITED UNILATERAL 03/25/2025 CLINICAL HISTORY: 29-year-old female presents with palpable concern in the right breast. No family history of breast cancer. TECHNIQUE: DIAG MAMM W/CAD, BILAT; BILAT BRST CARLOS STAND ALONE; BREAST LIMITED UNILATERAL. COMPARISON: Baseline examination, no priors. FINDINGS: MAMMOGRAM: TISSUE DENSITY: There are scattered areas of fibroglandular density. Right breast: There is a triangle skin marker indicating the area of palpable concern in the upper-outer right breast. Underlying the skin marker are no definite mammographic findings. Left breast: There are no suspicious masses, grouped calcifications or architectural distortions in the left breast. ULTRASOUND: Ultrasound performed of the upper-outer quadrant of the right breast in the area of patient's palpable concern demonstrates an circumscribed oval hypoechoic mass at 10 o'clock 5 cm from the nipple, measuring 0.6 x 0.5 x 0.2 cm. US/Breast Limited Unilateral IMPRESSION: Right breast mass at 10 o'clock is probably benign. Recommend short interval six-month follow-up diagnostic ultrasound for further evaluation. OVERALL FINAL ASSESSMENT BI-RADS 3: PROBABLY BENIGN. RECOMMENDATION: 6 Month Follow-up A letter with findings and recommendations will be mailed to the patient. Reading Location: [facility] CC: KODI Manzano; Dr. Bruna Walker MD Labor Economist: Signed Normal [facility] Breast imaging reportOrdered By: Ciera Jacobs on 03-25-2025 Study report [facility] Imaging Services [address] [place], [place] [id number] DIAG MAMM W/CAD, BILAT MR#: [id number] Acct: [id number] Name: UZMA HOROWITZ Rep #: [id number] : 1995 F 29 From: Sarah Jacobs MD PCP: Dr. Bruna Walker MD Status: [facility] Study:DIAG MAMM W/CAD, BILAT Date of Exam: 03/25/25 Exam# [id number] Ordering Dr: [facility]zano [facility] EXAM: DIAG MAMM W/CAD, BILAT; BILAT BRST CARLOS STAND ALONE; BREAST LIMITED UNILATERAL 03/25/2025 CLINICAL HISTORY: 29-year-old female presents with palpable concern in the right breast. No family history of breast cancer. TECHNIQUE: DIAG MAMM W/CAD, BILAT; BILAT BRST CARLOS STAND ALONE; BREAST LIMITED UNILATERAL. COMPARISON: Baseline examination, no priors. FINDINGS: MAMMOGRAM: TISSUE DENSITY: There are scattered areas of fibroglandular density. Right breast: There is a triangle skin marker indicating the area of palpable concern in the upper-outer right breast. Underlying the skin marker are no definite mammographic findings. Left breast: There are no suspicious masses, grouped calcifications or architectural distortions in the left breast. ULTRASOUND: Ultrasound performed of the upper-outer quadrant of the right breast in the areaof patient's palpable concern demonstrates an circumscribed oval hypoechoic mass at 10 o'clock 5 cm from the nipple, measuring0.6 x 0.5 x 0.2 cm. BI/DIAG MAMM W/CAD, BILAT IMPRESSION: Right breast mass at 10 o'clock is probably benign. Recommend short interval six-month follow-up diagnostic ultrasound for further evaluation. OVERALL FINAL ASSESSMENT BI-RADS 3: PROBABLY BENIGN. RECOMMENDATION: 6 Month Follow-up A letter with findings and recommendations will be mailed to the patient. Reading Location[facility] CC: [facility] Janis Manzano; Dr. Bruna Walker MD ~ Labor Economist: Signed [facility] Study report [facility] Imaging Services [address] [place], [place] [address] Bilat Brst Carlos Stand Alone MR#: [id number] Acct: [id number] Name: UZMA HOROWITZ Rep #: [id number] : 1995 F 29 From: Sarah Jacobs MD PCP: Dr. Bruna Walker MD Status: [facility] Study:Bilat Brst Carlos Stand Alone Date of Exa m: 03/25/25 Exam# [id number] Ordering Dr: Janis Manzano [facility] EXAM: DIAG MAMM W/CAD, BILAT; BILAT BRST CALROS STAND ALONE; BREAST LIMITED UNILATERAL 03/25/2025 CLINICAL HISTORY: 29-year-old female presents with palpable concern in the right breast. No family history of breast cancer. TECHNIQUE: DIAG MAMM W/CAD, BILAT; BILAT BRST CARLOS STAND ALONE; BREAST LIMITED UNILATERAL. COMPARISON: Baseline examination, no priors. FINDINGS: MAMMOGRAM: TISSUE DENSITY: There are scattered areas of fibroglandular density. Right breast: There is a triangle skin marker indicating the area of palpable concern in the upper-outer right breast. Underlying the skin marker are no definite mammographic findings. Left breast: There are no suspicious masses, grouped calcifications or architectural distortions in the left breast. ULTRASOUND: Ultrasound performed of the upper-outer quadrant of the right breast in the areaof patient's palpable concern demonstrates an circumscribed oval hypoechoic mass at 10 o'clock 5 cm from the nipple, measuring0.6 x 0.5 x 0.2 cm. BI/Bilat Brst Carlos Stand Alone IMPRESSION: Right breast mass at 10 o'clock is probably benign. Recommend short interval six-month follow-up diagnostic ultrasound for further evaluation. OVERALL FINAL ASSESSMENT BI-RADS 3: PROBABLY BENIGN. RECOMMENDATION: 6 Month Follow-up A letter with findings and recommendations will be mailed to the patient. Reading Location[facility] CC: [facility] Janis Manzano; Dr. Bruna Walker MD ~ Labor Economist: Signed [facility] DIAG MAMM W/CAD, BILATon DIAG MAMM W/CAD, BILAT [facility] Imaging Services [address] [place] [id number] DIAG MAMM W/CAD, BILAT MR#: [id number] Acct: [id number] Name: UZMA HOROWITZ Rep #: [id number] : 1995 F 29 From: Ciera Jacobs MD PCP: Dr. Bruna Walker MD Status: [facility] Study: DIAG MAMM W/CAD, BILAT Date of Exam: 03/25/25 Exam# [id number] Ordering Dr: Janis Manzano [facility] EXAM: DIAG MAMM W/CAD, BILAT; BILAT BRST CARLOS STAND ALONE; BREAST LIMITED UNILATERAL 03/25/2025 CLINICAL HISTORY: 29-year-old female presents with palpable concern in the right breast. No family history of breast cancer. TECHNIQUE: DIAG MAMM W/CAD, BILAT; BILAT BRST CARLOS STAND ALONE; BREAST LIMITED UNILATERAL. COMPARISON: Baseline examination, no priors. FINDINGS: MAMMOGRAM: TISSUE DENSITY: There are scattered areas of fibroglandular density. Right breast: There is a triangle skin marker indicating the area of palpable concern in the upper-outer right breast. Underlying the skin marker are no definite mammographic findings. Left breast: There are no suspicious masses, grouped calcifications or architectural distortions in the left breast. ULTRASOUND: Ultrasound performed of the upper-outer quadrant of the right breast in the area of patient's palpable concern demonstrates an circumscribed oval hypoechoic mass at 10 o'clock 5 cm from the nipple, measuring 0.6 x 0.5 x 0.2 cm. BI/DIAG MAMM W/CAD, BILAT IMPRESSION: Right breast mass at 10 o'clock is probably benign. Recommend short interval six-month follow-up diagnostic ultrasound for further evaluation. OVERALL FINAL ASSESSMENT BI-RADS 3: PROBABLY BENIGN. RECOMMENDATION: 6 Month Follow-up A letter with findings and recommendations will be mailed to the patient. Reading Location: [id number] CC: KODI Manzano; Dr. Bruna Walker MD Labor Economist: Signed Normal [facility] Supervisor Alteration Workroom Office Visit Reporton 03-12-2025 Supervisor Alteration Workroom Office Visit Report [facility] [address], [address] [place] [address] OFFICE VISIT Date of Service: 03/12/25 MR#: [id number] Acct: [id number] Name: UZMA HOROWITZ Rep #: [id number] : 1995 Provider: KODI Meehan Age/Sex: 29/F Location: [facility] Status: Signed Intake Vital Signs 10/13/24 15:03 03/12/25 15:33 Height 5 ft 3 in 5 ft 3 in Weight: 236 lb 8 oz 231 lb 4 oz BMI 41.8 40.9 BP 137/92 H 132/86 H Intake Visit Reasons: R breast lump/pain Machine Cementer Required: No Is patient in pain?: No Allergies No Known Allergies Allergy (Verified 03/12/25 15:36) Medications ???Medication ???Instructions ???Recorded ???Confirmed ???Type drospirenone 3 mg-ethinyl 1 tab PO DAILY #84 TABLETS 5 03/12/25 Rx estradiol 0.02 mg tablet (Vestura (28)) spironolactone 50 mg tablet 50 mg PO BID #180 TABLETS 10/14/24 03/12/25 Rx Post menopausal: No Patient : No : No Control Method: ocp PFSH Medical History Cervical cancer screening PCOS (polycystic ovarian syndrome) Family History Grandfather Hypertension Diabetes Social History current occupational status: employed current occupation: [employer] Smoking Status: Never smoker alcohol intake: current details: social substance use type: does not use caffeine: Yes what type of physical activity do you participate in: aerobics frequency: 3-4 times per week seatbelt use: always do you feel safe at home: Yes additional social history: Single HPI R breast lump/pain Details: UZMA HOROWITZ is a 29 year old who presents for breast lump in the right breast as well as pain. She reports she did miss a few of her control pills and ended up taking pills from a previous pack throwing off her cycles. She reports shortly after this she did notice pain to the right breast as well as a lump. She has never had this before. She is not sexually active and no concerns for . Female Reproductive History Questions: metorrhagia: No, sexually active: No, dyspareunia: No and PCB: No History 0 Elective abortions Hx Para Spontaneous abortions Hx # Term Pregnancies Ectopic pregnancies Hx # Pregnancies Multiple births # of living children ROS Const Constitutional: Reports system reviewed and no additional complaints, except as documented : Reports system reviewed and no additional complaints, except as documented; Denies nipple discharge Skin Skin/Breast: Reports as per HPI, breast mass and breast pain; Denies breast skin changes or nipple discharge Psych Psych: Reports system reviewed and no additional complaints, except as documented Exam Const General: cooperative and no acute distress Orientation: oriented x3 HENMT Head: normal to inspection Neck Neck: normal visual inspection Chest Breast inspection: normal inspection of the breasts and normal inspection of the axillae Breast palpation: normal palpation of the axillae and abnormal palpation of the breast (lump x 2 right breast lower quad. ) Resp Effort Inspection: normal respiratory effort Coding Level of Care Code Established Pt Off vis,est,level 3 Patient Type Established Diagnoses Breast lump N63.0 Assessment and Plan Assessment and Plan (1) Breast lump: Status: Acute Plan: right side; further eval with diagnostic mammogram and ultrasound. Final plan with results. Orders: Orders Breast Limited Unilateral Today N63.0 - Unspecified lump in unspecified breast DIAG MAMM W/CAD, BILAT Today N63.0 - Unspecified lump in unspecified breast, Z12.31 - Encounter for screening mammogram for malignant neoplasm of breast 03/12/25 1617 Date Janis MARIEE Cosigner Signature: Date (if applicable) CC: Normal [facility] Vitamin D 1,25-Dihydroxyon 0 10-17-2024 VIT D 1,25 DIHY 101.0 pg/mL Abnormal 24.8-81.5 [facility] Comment on above: Result Comment: Perf ormed at: [facility] [id number] Income Auditor: Edwin Fenton MD, Phone: [phone] Performed By: #### L 500.4050, L3300.0960, L100.0100, L515.0749 #### [facility] [address] [place], [address] CBC W/Diff, Automatedon 10-04 Absolute Lymph 1.08 X10 3/uL Normal 0.83-4.51 [facility] Comment on above: Performed By: #### L 500.4050, L3300.0960, L100.0100, L501.9520 #### [facility] [address] [place], [address] Absolute Neut 2.5 X10 3/uL Normal 2.0-7.7 [facility] Comment on above: Performed By: #### L 500.4050, L3300.0960, L100.0100, L501.9520 #### [facility] [address] [place], [address] Basophils/100 WBC (Bld) 0.7 % Normal 0-1 [facility] Comment on above: Performed By: #### L 500.4050, L3300.0960, L100.0100, L501.9520 #### [facility] [address] [place], [address] Eosinophils/100 WBC (Bld) 3.1 % Normal 0-5 [facility] Comment on above: Performed By: #### L 500.4050, L3300.0960, L100.0100, [id number] #### [facility] [address] [place], [address] Erythrocyte distribution width (RBC) [Ratio] 12.9 % Normal 11.6-14.6 [facility] Comment on above: Performed By: #### L 500.4050, L3300.0960, L100.0100, L501.9520 #### [facility] [address] [place], [address] Hematocrit (Bld) [Volume fraction] 41.1 % Normal 37-47 [facility] Comment on above: Performed By: #### L 500.4050, L3300.0960, L100.0100, L501.9520 #### [facility] [address] [place], [address] Hemoglobin (Bld) [Mass/Vol] 13.1 g/dL Normal 12.0-15.0 [facility] Comment on above: Performed By: #### L 500.4050, L3300.0960, L100.0100, L501.9520 #### [facility] [address] [place], [address] IG% 0.200 Normal 0.0-0.9 [facility] Comment on above: Result Comment: IG% - Immature Granulocytes (promyelocytes, myelocytes and metamyelocytes) > 1% indicates that a LEFT SHIFT is Present. Performed By: #### L 500.4050, L3300.0960, L100.0100, L501.9520 #### [facility] [address] [place], [address] Lymphocytes/100 WBC (Bld) 23.9 % Normal 19-41 [facility] Comment on above: Performed By: #### L 500.4050, L3300.0960, L100.0100, L501.9520 #### [facility] [address] [place], [address] MCH (RBC) [Entitic mass] 26.7 pg Low 27.0-32.0 [facility] Comment on above: Performed By: #### L 500.4050, L3300.0960, L100.0100, L501.9520 #### [facility] [address] [place], [address] MCHC (RBC) [Mass/Vol] 31.9 g/dL Low 32-36 [facility] Comment on above: Performed By: #### L 500.4050, L3300.0960, L100.0100, L501.9520 #### [facility] [address] [place], [address] MCV (RBC) [Entitic vol] 83.7 fL Normal 81-99 [facility] Comment on above: Performed By: #### L 500.4050, L3300.0960, L100.0100, L501.9520 #### [facility] [address] [place], [address] Monocytes/100 WBC (Bld) 16.4 % High 0-10 [facility] Comment on above: Performed By: #### L 500.4050, L3300.0960, L100.0100, L501.9520 #### [facility] [address] [place], [address] Neutrophils/100 WBC (Bld) 55.7 % Normal 47-70 [facility] Comment on above: Performed By: #### L 500.4050, L3300.0960, L100.0100, L501.9520 #### [facility] [address] [place], [address] Nucleated RBC (Bld) [#/Vol] 0 10*3/uL Normal 0-5 [facility] Comment on above: Performed By: #### L 500.4050, L3300.0960, L100.0100, L501.9520 #### [facility] [address] [place], [address] Platelet mean volume (Bld) [Entitic vol] 9.4 fL Normal 6.2-12.0 [facility] Comment on above: Performed By: #### L 500.4050, L3300.0960, L100.0100, L501.9520 #### [facility] [address] [place], [address] Platelets (Bld) [#/Vol] 222 10*3/uL Normal 150-450 [facility] Comment on above: Performed By: #### L 500.4050, L3300.0960, L100.0100, L501.9520 #### [facility] [address] [place], [address] RBC (Bld) [#/Vol] 4.91 10*6/uL Normal 4.2-5.4 [facility] Comment on above: Performed By: #### L 500.4050, L3300.0960, L100.0100, L501.9520 #### [facility] [address] [place], [address] RDW SD 38.8 fl Normal 35.1-43.9 [facility] Comment on above: Performed By: #### L 500.4050, L3300.0960, L100.0100, L501.9520 #### [facility] [address] [place], [address] WBC (Bld) [#/Vol] 4.5 10*3/uL Normal 4.4-11.0 [facility] Comment on above: Performed By: #### L 500.4050, L3300.0960, L100.0100, L501.9520 #### [facility] [address] [place], [address] [facility]24 Albumin [Mass/Vol] 3.6 g/dL Normal 3.2-5.0 [facility] Comment on above: Performed By: #### L 500.4050, L3300.0960, L100.0100, L501.9520 #### [facility] [address] [place], [address] Albumin/Globulin [Mass ratio] 0.8 {ratio} Low 0.9-2.4 [facility] Comment on above: Performed By: #### L 500.4050, L3300.0960, L100.0100, L501.9520 #### [facility] [address] [place], [address] ALK P 96 U/L Normal 45-117 [facility] Comment on above: Performed By: #### L 500.4050, L3300.0960, L100.0100, L501.9520 #### [facility] [address] [place], [address] ALT [Catalytic activity/Vol] 81 U/L High 13-56 [facility] Comment on above: Performed By: #### L 500.4050, L3300.0960, L100.0100, L501.9520 #### [facility] [address] [place], [address] AST [Catalytic activity/Vol] 51 U/L High 15-37 [facility] Comment on above: Performed By: #### L 500.4050, L3300.0960, L100.0100, L501.9520 #### [facility] [address] [place], [address] Bilirubin [Mass/Vol] 0.20 mg/dL Normal 0.20-1.00 [facility] Comment on above: Result Comment: For patients on eltrombopag therapy, use of Dimension [place] TBIL is not recommended. Performed By: #### L 500.4050, L3300.0960, L100.0100, L501.9520 #### [facility] [address] [place], [address] BUN/CRE 18.2 RATIO Normal 10-20 [facility] Comment on above: Performed By: #### L 500.4050, L3300.0960, L100.0100, L501.9520 #### [facility] [address] [place], [address] CA,Total 9.5 mg/dL Normal 8.5-10.1 [facility] Comment on above: Performed By: #### L 500.4050, L3300.0960, L100.0100, L501.9520 #### [facility] [address] [place], [address] Chloride [Moles/Vol] 104 mmol/L Normal 98-107 [facility] Comment on above: Performed By: #### L 500.4050, L3300.0960, L100.0100, L501.9520 #### [facility] [address] [place], [address] CO2 [Moles/Vol] 26.0 mmol/L Normal 21.0-32.0 [facility] Comment on above: Performed By: #### L 500.4050, L3300.0960, L100.0100, L501.9520 #### [facility] [address] [place], [address] Creatinine [Mass/Vol] 0.66 mg/dL Normal 0.55-1.02 [facility] Comment on above: Result Comment: The validity of the calculated GFR GFRAA in patients over 70 years has not been determined. Clinical correlation is essential. Performed By: #### L 500.4050, L3300.0960, L100.0100, L501.9520 #### [facility] [address] [place], [address] EST GFR - AA 138 mL/min Normal >60 [facility] Comment on above: Result Comment: Afri can [place] GFR Calc Performed By: #### L 500.4050, L3300.0960, L100.0100, L501.9520 #### [facility] [address] [place], [address] GAP 7 Normal 5-15 [facility] Comment on above: Performed By: #### L 500.4050, L3300.0960, L100.0100, L501.9520 #### [facility] [address] [place], [address] GFR/1.73 sq M.predicted among non-blacks MDRD (S/P/Bld) [Vol rate/Area] 114 mL/min/{1.73_m2} Normal >60 [facility] Comment on above: Result Comment: Non- GFR Calc Performed By: #### L 500.4050, L3300.0960, L100.0100, L501.9520 #### [facility] [address] [place], [address] Globulin (S) [Mass/Vol] 4.3 g/dL High 2.2-4.2 [facility] Comment on above: Performed By: #### L 500.4050, L3300.0960, L100.0100, L501.9520 #### [facility] [address] [place], [address] Glucose [Mass/Vol] 101 mg/dL Normal 74-106 [facility] Comment on above: Result Comment: Fast ing Glucose result from 100 to 125 mg/dL suggests IMPAIRED HOMEOSTASIS per A.D.A. criteria. Performed By: #### L 500.4050, L3300.0960, L100.0100, L501.9520 #### [facility] [address] [place], [address] Potassium [Moles/Vol] 3.7 mmol/L Normal 3.5-5.1 [facility] Comment on above: Performed By: #### L 500.4050, L3300.0960, L100.0100, L501.9520 #### [facility] [address] [place], [address] Sodium [Moles/Vol] 137 mmol/L Normal 136-145 [facility] Comment on above: Performed By: #### L 500.4050, L3300.0960, L100.0100, L501.9520 #### [facility] [address] [place], [address] T PROT 7.9 g/dL Normal 6.4-8.2 [facility] Comment on above: Performed By: #### L 500.4050, L3300.0960, L100.0100, L501.9520 #### [facility] [address] [place], [address] Urea nitrogen [Mass/Vol] 12 mg/dL Normal 7-18 [facility] Comment on above: Performed By: #### L 500.4050, L3300.0960, L100.0100, L501.9520 #### [facility] [address] [place], [address] Supervisor Alteration Workroom Office Visit Reporton 10-13-2024 Supervisor Alteration Workroom Office Visit Report [facility] [address], [address] [place] [address] OFFICE VISIT Date of Service: 10/13/24 MR#: [id number] Acct: [id number] Name: UZMA HOROWITZ Rep #: [id number] : 1995 Provider: Dr. Rita bryson MD Age/Sex: 29/F Location: [facility] [place] Status: Signed with Addenda ADDENDUM by Clarisa Odonnell on 10/13/24 at 1614 Assessment and Plan Assessment and Plan (1) Dysthymia: Status: Acute (2) Anxiety: Status: Acute Comment: encouraged counseling (3) Polycystic ovarian syndrome: Status: Acute Comment: ocp spironolactone, discussed weight management. labs ordered Orders: Orders CBC W/Diff, Automated Today E28.2 - Polycystic ovarian syndrome, Z00.00 - Encounter for general adult medical examination without abnormal findings Comprehensive Metabolic Profil Today E28.2 - Polycystic ovarian syndrome, Z00.00 - Encounter for general adult medical examination without abnormal findings Thyroid Stim Hormone (TSH) Today E28.2 - Polycystic ovarian syndrome, Z13.29 - Encounter for screening for other suspected endocrine disorder Vitamin D 1,25-Dihydroxy Today E28.2 - Polycystic ovarian syndrome, Z13.21 - Encounter for screening for nutritional disorder 10/14/24 1351 Date Rita Monroe MD cc: * Signed Intake Vital Signs 05/23/24 16:09 02/10/25 15:03 Height 5 ft 3 in 5 ft 3 in Weight: 240 lb 236 lb 8 oz BMI 42.5 41.8 BP 148/92 H 137/92 H Blood Pressure Location Lt brachial Position Sitting Respiration 16 Pulse 138 H Pulse Source Monitor Temp 97.8 F Pulse Oximetry (%) 98 Oxygen Delivery Method room air Intake 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: No Is patient in pain?: No Feel stressed/tense/nervou s/anxious/difficulty sleeping: to some extent (anxiety has been increased related to work and life in general) Allergies No Known Allergies Allergy (Verified 10/13/24 15:05) Medications ???Medication ???Instructions ???Recorded ???Confirmed ???Type drospirenone 3 mg-ethinyl 1 tab PO DAILY #84 TABLETS 5 10/13/24 Rx estradiol 0.02 mg tablet (Vestura (28)) spironolactone 50 mg tablet 50 mg PO BID #180 TABLETS 10/01/24 10/13/24 Rx Is last menstrual period known: Yes Last Menstrual Period: 09/22/24 Post menopausal: No Patient : No : No PFSH Medical History Cervical cancer screening PCOS (polycystic ovarian syndrome) Family History Grandfather Hypertension Diabetes Social History (Updated 10/13/24 @ 15:08 by Clarisa Odonnell) current occupational status: employed current occupation: [employer] Smoking Status: Never smoker alcohol intake: current details: social substance use type: does not use caffeine: Yes what type of physical activity do you participate in: aerobics frequency: 3-4 times per week seatbelt use: always do you feel safe at home: Yes additional social history: Single History 0 Elective abortions Hx Para Spontaneous abortions Hx # Term Pregnancies Ectopic pregnancies Hx # Pregnancies Multiple births # of living children HPI Encounter for routine gynecological examination Details: UZMA HOROWITZ is a 29 year old who presents for annual exam. repeat bps prior WNL, having some increased anxiety Last PAP: 09/17/23 - normal History of abnormal PAP: Last mammogram: not due History of abnormal mammogram: Colon cancer screening: not due Other preventative health care screenings: PCP is Aaron - PCP orders routine labs Female Reproductive History Last Menstrual Period: 09/22/24 Cycle Length: 21-35 Bleeding Duration: 5 Questions: metorrhagia: No, sexually active: Yes, dyspareunia: No and PCB: No Menopausal Symptoms: No hot flashes, No night sweats, No weight change, No mood changes, No difficulty concentrating, No sleep problems and No change in libido ROS Const Constitutional: Reports as per HPI; Denies fatigue, increased appetite, poor appetite, night sweats, weight gain or weight loss Cardio Card: Denies chest pain Resp Resp: Denies cough or dyspnea GI GI: Reports as per HPI; Denies abdominal pain, bloating, constipation, nausea or vomiting : Reports as per HPI and other; Denies difficulty voiding, dysuria, hematuria, hot flashes, nipple discharge, pelvic pain, prolapse symptoms, urinary frequency, urinary incontinence, urinary urgency, vaginal discharge, vaginal dryness, vaginal odor or vaginal pruritus Skin Skin/Breast: Denies changing lesions, breast mass, breast pain, breast skin changes or nipple discharge (more content not included)... Normal [facility] Thyroid Stim Hormone (TSH)on 10-13-2024 TSH 3.350 uIU/mL Normal 0.358-3.740 [facility] Comment on above: Performed By: #### L [id number], [id number], L100.0100, [id number] #### [facility] Laboratory [address] [place], [place], [address] Urgent Care Visit Reporton 1 09-09-2023 Urgent Care Visit Report [facility] [address], [address] [place] [address] OFFICE VISIT Date of Service: 07/10/24 MR#: [id number] Acct: [id number] Name: UZMA HOROWITZ Rep #: [id number] : 1995 Provider: JESSE Hathaway Age/Sex: 29/F Location: [facility] Status: Signed Intake Vital Signs 05/23/24 16:09 07/10/24 11:33 Height 5 ft 3 in Weight: 240 lb BMI 42.5 BP 148/92 H 128/78 H Blood Pressure Location Lt brachial Rt brachial Position Sitting Sitting Respiration 16 16 Pulse 138 H 80 Pulse Source Monitor NIBP Temp 97.8 F 99.0 F Temp Source Temporal Oral Pulse Oximetry (%) 98 100 Oxygen Delivery Method room air room air Intake Visit Reasons: CONGESTION Chief Complaint: congest, PND, cough, PND, fatigue Machine Cementer Required: No Is patient in pain?: No Allergies No Known Allergies Allergy (Verified 07/10/24 11:35) Is last menstrual period known: No Post menopausal: No Patient : No Have you fallen in the past year?: No Nurse's Note: congest, PND, cough, PND, fatigue, yellow mucus x 4 days. [facility] Medical History Cervical cancer screening PCOS (polycystic ovarian syndrome) Family History Grandfather Hypertension Diabetes Social History Smoking Status: Never smoker alcohol intake: current details: social substance use type: does not use caffeine: Yes what type of physical activity do you participate in: aerobics frequency: 3-4 times per week seatbelt use: always do you feel safe at home: Yes additional social history: Single- Works at [employer] HPI Chief Complaint: congest, PND, cough, PND, fatigue Details: UZMA HOROWITZ, is a 29 F who presents to the office today for complaint of cough, congestion, postnasal drainage and fatigue for the past 4 days. Patient denies hemoptysis, shortness of breath or difficulty breathing. No fever, chills, sweats. No nausea, vomiting or diarrhea. No loss of taste or smell. No other associated symptoms or alleviating/aggravati ng factors. ROS Const Constitutional: Positive for other (6 system ROS completed with pertinent findings in the HPI otherwise normal.) Exam Const General: cooperative and well developed HENFL Head: normal to inspection and atraumatic Ears: hearing grossly normal bilaterally Nose: nasal discharge clear Face and sinus: normal facial exam Mouth: oral mucosae normal Throat: abnormal tonsil bilaterally hypertrophy 1+ Resp Effort Inspection: normal respiratory effort and no audible wheezes Auscultation: Bilateral: Clear to Auscultation Cardio Palpation: normal PMI Rate: regular rate Rhythm: regular rhythm Neuro General: patient alert and CN's II-XI intact bilaterally Psych Appearance: grossly normal Mental Status: mental status grossly normal Results POC TRELL Covid FluAB PCR POC Trell Covid PCR Detected Last Edit by Jyothi Caicedo on 07/10/24 11:55 POC TRELL FLU NOT DETECTED FLU A B Last Edit by Jyothi Caicedo on 07/10/24 11:55 Coding Level of Care Code Off vis,est,level 3 Diagnoses COVID-19 U07.1 Assessment and Plan Assessment and Plan (1) COVID-19: Status: Acute Orders: Orders POC Trell Covid FLUAB PCR 07/10/24 Medications: New dexamethasone 6 mg PO DAILY 5 tabs 0RF benzonatate 200 mg (2 x 100 mg) PO TID PRN 30 caps 0RF cough Plan Patient tested positive for COVID in the office today. Decadron and benzonatate as prescribed today. Encouraged to get plenty of rest, drink lots of clear liquids, and use Tylenol or Ibuprofen (unless contraindicated) for fever and comfort. Patient also educated on other symptomatic management techniques. To be seen in 7-10 days if no improvement; sooner if worsening of symptoms. Patient advised of potential red flags and when appropriate to report to the ED. Patient verbalized understanding and agreement with all the above. Clinical Quality Measures Falls Risk Screening/Assistive Devices Have you fallen in the past year?: No 07/11/2407 Date Steve Navarrete Signature: Date (if applicable) CC: Normal [facility] Absolute lymphocyte countOrd ered By: Bruna Walker on 01-04-2024 Lymphocytes Auto (Unsp spec) [#/Vol] 2.54 10*3/uL 0.83-4.51 [facility] Automated lymphocyte count a s percentage of total leukocytesOrdered By: Bruna Escotostephen on 01-04-2024 Lymphocytes/100 WBC Auto (Unsp spec) 31.6 % 19-41 [facility] Basophil percentageOrdered B y: Bruna Escotostephen on 01-04-2024 Basophils/100 WBC (Bld) 0.5 % 0-1 [facility] Bilirubin [Mass/Vol] 0.60 mg/dL 0.20-1.00 [facility] Comment on above: For patients on eltr ombopag therapy, use of Dimension Kamuela TBIL is not recommended. Chloride [Moles/Vol] 105 mmol/L 98-107 [facility] Cholesterol [Mass/Vol] 239 mg/dL <[address] [facility] Comment on above: <200 mg/dL Desirable 200-240 mg/dL Borderline >240 mg/dL High Risk Eosinophils/100 WBC (Bld) 1.1 % 0-5 [facility] Glucose [Mass/Vol] 93 mg/dL 74-106 [facility] Hemoglobin (Bld) [Mass/Vol] 14.2 g/dL 12.0-15.0 [facility] Monocytes/100 WBC (Bld) 4.8 % 0-10 [facility] Neutrophils (Bld) [#/Vol] 5.0 10*3/uL 2.0-7.7 [facility] Neutrophils/100 WBC (Bld) 61.6 % 47-70 [facility] Potassium [Moles/Vol] 3.6 mmol/L 3.5-5.1 [facility] Protein [Mass/Vol] 8.3 g/dL 6.4-8.2 [facility] Sodium [Moles/Vol] 139 mmol/L 136-145 [facility] Triglyceride [Mass/Vol] 130 mg/dL <199 [facility] Comment on above: The drugs N-Acetylcy steine and Metamizole may falsely depress this assay.Serum Triglycerides Reference Interval Normal <150 mg/dL Borderline high 150 - 199 mg/dL High 200 - 499 mg/dL Very High > or = 500 mg/dL WBC (Bld) [#/Vol] 8.1 10*3/uL 4.4-11.0 [facility] Determination of erythrocyte mean corpuscular volume (MCV)Ordered By: Bruna Walker on 01-04-2024 MCV (RBC) [Entitic vol] 83.1 fL 81-99 [facility] Erythrocyte distribution wid th ratioOrdered By: [facility] on 01-04-2024 Erythrocyte distribution width (RBC) [Ratio] 12.9 % 11.6-14.6 [facility] Erythrocyte distribution wid th standard deviationOrdered By: [facility] on 01-04-2024 Erythrocyte distribution width (RBC) [Entitic vol] 38.7 fL 35.1-43.9 [facility] Hematocrit Auto (Bld) [Volum e fraction]Ordered By: Bruna Walker on 01-04-2024 Hematocrit (Bld) [Volume fraction] 44.3 % 37-47 [facility] Immature granulocytes/100 WB C Auto (Bld)Ordered By: [facility] on 01-04-2024 Immature granulocytes/100 WBC (Bld) 0.400 % 0.0-0.9 [facility] Comment on above: IG% - Immature Granu locytes (promyelocytes, myelocytes and metamyelocytes) > 1% indicates that a LEFT SHIFT is Present. Laboratory - Chemistry and C hemistry - challengeOrdered By: Bruna Mnstephen on 01-04-2024 Albumin/Globulin [Mass ratio] 0.8 {ratio} 0.9-2.4 [facility] ALP [Catalytic activity/Vol] 92 U/L 45-117 [facility] ALT [Catalytic activity/Vol] 40 U/L 13-56 [facility] Cholesterol in HDL [Mass/Vol] 48 mg/dL >40 [facility] Comment on above: The drugs N-Acetylcy steine and Metamizole may falsely depress this assay. Reference Range HDL <40 mg/dL Low HDL Cholesterol HDL >or= 60 mg/dL High HDL Cholesterol Cholesterol in LDL [Mass/Vol] 165 mg/dL 0-130 [facility] CO2 [Moles/Vol] 26.0 mmol/L 21.0-32.0 [facility] Globulin (S) [Mass/Vol] 4.6 g/dL 2.2-4.2 [facility] Urea nitrogen/Creatinine [Mass ratio] 12.9 mg/mg 10-20 [facility] Laboratory - Hematology and Cell countsOrdered By: Bruna Walker on 01-04-2024 MCH (RBC) [Entitic mass] 26.6 pg 27.0-32.0 [facility] MCHC (RBC) [Mass/Vol] 32.1 g/dL 32-36 [facility] Nucleated RBC/100 WBC (Bld) [Ratio] 0 % 0-5 [facility] Platelet mean volume (Bld) [Entitic vol] 8.8 fL 6.2-12.0 [facility] Platelets (Bld) [#/Vol] 323 10*3/uL 150-450 [facility] No Panel InformationOrdered By: Bruna Walker on 01-04-2024 Estimated GFR (MDRD) Amer 115 mL/min >60 [facility] Comment on above: GFR Calc Estimated GFR (MDRD) Non-Af Amer 95 mL/min >60 [facility] Comment on above: Non- GFR Calc VLDL Cholesterol 26 mg/dL 5-40 [facility] RBC Auto (Bld) [#/Vol]Ordere d By: Bruna Walker on 01-04-2024 RBC (Bld) [#/Vol] 5.33 10*6/uL 4.2-5.4 [facility] Serum or plasma calcium sami urement (mass/volume)Ordered By: Bruna Walker on 01-04-2024 Calcium [Mass/Vol] 9.8 mg/dL 8.5-10.1 [facility] Serum or plasma creatinine m easurement (mass/volume)Ordered By: Bruna Walker on 01-04-2024 Creatinine [Mass/Vol] 0.78 mg/dL 0.55-1.02 [facility] Comment on above: The validity of the calculated GFR & GFRAA in patients over 70 years has not been determined. Clinical correlation is essential. Serum or plasma urea nitroge n measurement (mass/volume)Ordered By: Bruna Walker on 01-04-2024 Urea nitrogen [Mass/Vol] 10 mg/dL 7-18 [facility] Thin prep Papanicolaou smear with manual screeningOrdered By: Bruna Walker on 01-04-2024 Thin prep Papanicolaou smear with manual screening 3.7 g/dL 3.2-5.0 [facility] Thin prep Papanicolaou smear with manual screening 23 U/L [facility] Thin prep Papanicolaou smear with manual screening 8 5-15 [facility] Whole blood hemoglobin A1c/t otal hemoglobin ratio (mass fraction)Ordered By: Bruna Walker on 01-04-2024 HbA1c (Bld) [Mass fraction] 5.3 % 3.8-5.6 [facility] Comment on above: Normal < 5.7 % Predi abetic 5.7 - 6.4 % Diabetic >or= 6.5 % Please note range changes. Cervical or vagninal specime n microscopic examination by cytology stain (reported asOrdered By: Margaux Del Cid on 09-17-2023 Cytology report Cyto stain Doc (Cvx/Vag) Comment . [facility] Comment on above: The Pap smear is a s creening test designed to aid in thedetection of premalignant and malignant conditions of theuterine cervix. It is not a diagnostic procedure andshould not be used as the sole means of detecting cervicalcancer. Both false-positive and false-negative reports dooccur. Laboratory - CytologyOrdered By: Margaux Del Cid on 09-17-2023 Platform Loader Cyto stain Nom (Cvx/Vag) [ID] Comment . [facility] Comment on above: Beverly Murphy, Cytot echnologist (ASCP) Laboratory - Miscellaneous t estsOrdered By: Margaux Del Cid on 09-17-2023 Service comment (Unsp spec) [Interp] . . [facility] No Panel InformationOrdered By: Margaux Del Cid on 09-17-2023 Human Papillomavirus Screen Comment . [facility] Comment on above: The HPV DNA reflex c femi were not met with this specimenresult therefore, no HPV testing was performed.Performed at: [address] [id number] Director: Latesha Jones MD, Phone: [phone] Thin prep Papanicolaou smear with manual screeningOrdered By: Margaux Del Cid on 09-17-2023 Thin prep Papanicolaou smear with manual screening Comment . [facility] Comment on above: NEGATIVE FOR INTRAEP ITHELIAL LESION OR MALIGNANCY. This liquid based Th inPrep(R) pap test was screened withthe use of an image guided system. Laboratory - Microbiology an d Antimicrobial susceptibilityon 06-29-2022 SARS-CoV-2 (COVID-19) RNA JENNIFER+probe Ql (Unsp spec) Detected [facility] Work Phone: No Panel Informationon 06-29 POC Nasal Swab Influenza A,B Not detected [facility] Work Phone: POC Nasal Swab RSV Not detected [facility] Work Phone: Vital Signs Date Time Vital Sign Value Performing Clinician Faci lity 04-08-2025 09:05-0400 Body height 160.[address] Bruna Walker MD Work Phone: [facility] 04-08-2025 09:05-0400 Body mass index (BMI) [Ratio] 41.1 kg/m2 Dr. Bruna Walker MD Work Phone: [facility] 04-08-2025 09:05-0400 Body weight 105.[address] Bruna Walker MD Work Phone: [facility] 04-08-2025 09:05-0400 Diastolic blood pressure 80 mm[Hg] Dr. Bruna Walker MD Work Phone: [facility] 04-08-2025 09:05-0400 Heart rate 101 /min Dr. Bruna Walker MD Work Phone: [facility] 04-08-2025 09:05-0400 Respiratory rate 17 /min Dr. Bruna Walker MD Work Phone: [facility] 04-08-2025 09:05-0400 SaO2% (BldA) [Mass fraction] 99 % Dr. Bruna Walker MD Work Phone: [facility] 04-08-2025 09:05-0400 Systolic blood pressure 119 mm[Hg] Dr. Bruna Walker MD Work Phone: [facility] 03-12-2025 15:33-0400 Body height 160.[address] Bruna Walker MD Work Phone: [facility] 03-12-2025 15:33-0400 Body mass index (BMI) [Ratio] 40.9 kg/m2 Dr. Bruna Walker MD Work Phone: [facility] 03-12-2025 15:33-0400 Body weight 104.[address] Bruna Walker MD Work Phone: [facility] 03-12-2025 15:33-0400 Diastolic blood pressure 86 mm[Hg] Dr. Bruna Walker MD Work Phone: [facility] 03-12-2025 15:33-0400 Systolic blood pressure 132 mm[Hg] Dr. Bruna Walker MD Work Phone: [facility] 09-17-2023 11:26-0500 Body height 160.[address] Anne Heaton Work Phone: [facility] 09-17-2023 11:21-0500 Body mass index (BMI) [Ratio] 42.7 kg/m2 Dr. Anne Heaton Work Phone: [facility] 09-17-2023 11:21-0500 Body weight 109.[address] Anne Heaton Work Phone: [facility] 09-17-2023 11:21-0500 Diastolic blood pressure 88 mm[Hg] Dr. Anne Heaton Work Phone: [facility] 09-17-2023 11:21-0500 Systolic blood pressure 129 mm[Hg] Dr. Anne Heaton Work Phone: [facility] Encounters Encounter Date Encounter Type Care Provider Facility Start: 06-30-2025 ambulatory Bruna Walker Facility: [facility] Start: 04-08-2025 End: 04-08-[address] Bruna Walker MD Work Phone: -[facility] Start: 04-08-2025 End: 04-08-[address] Jayy Ybarra MD -[facility] Work Phone: Start: 03-25-2025 End: 03-25-[address] Bruna Wlaker MD Work Phone: [facility] Start: 03-25-2025 End: 03-25-2025 Patient encounter procedure Janis MARIEE -[facility] Work Phone: Start: 03-25-2025 End: 03-25-2025 ambulatory Janis Manzano Facility:[facility] Start: 03-12-2025 End: 03-12-2025 Patient encounter procedure Janis MARIEE -[facility] Work Phone: Start: 03-12-2025 End: 03-12-[address] Bruna Walker MD Work Phone: -[facility] Start: 10-29-2024 Encounter for genera l adult medical examination without abnormal findings [facility] Start: 10-13-2024 Encounter for gynecological examination (general) (routine) without abnormal findings [facility] Start: 10-13-2024 End: 10-13-2024 ambulatory Rita Monroe Facility:[facility] Start: 10-13-2024 End: 10-13-2024 ambulatory Rita Monroe Facility:[facility] Start: 07-10-2024 End: 07-10-2024 ambulatory Bruna Walker Facility:[facility] Start: 01-04-2024 End: 01-04-[address] Anne Heaton Work Phone: [facility] Work Phone: Start: 01-04-2024 End: 01-04-[address] Anne Heaton Work Phone: [facility] Work Phone: Start: 09-17-2023 End: 09-17-[address] Anne Heaton Work Phone: [facility] Work Phone: Start: 09-17-2023 End: 09-17-[address] Anne Heaton Work Phone: [facility] Work Phone: Start: 09-17-2023 End: 09-17-[address] Anne Heaton Work Phone: [facility] Work Phone: Start: 06-29-2022 End: 06-29-[address] Anne Heaton Work Phone: [facility] Procedures Date Procedure Procedure Detail Performing Clinician Start: 03-25-2025 Bilateral mammography Ajay Walker MD Work Phone: Start: 03-25-[address] Bruna Walker MD Work Phone: Plan of Treatment Date Care Activity Detail Author Start: 09-17-2023 Liquid based cervica l cytology screening [facility] MG Breast - bilateral Diagnostic [facility] Path report.final Dx Spec [facility] Immunizations Immunization Date Immunization Notes Care Provider Fa cility 07-18-2024 influenza, seasonal, injectable, preservative free Dr. Bruna Walker MD Work Phone: [facility] 07-19-2023 influenza, injectabl e, quadrivalent, preservative free Dr. Anne Heaton Work Phone: [facility] 08-08-2022 influenza, injectabl e, quadrivalent, preservative free Dr. Anne Heaton Work Phone: [facility] 08-08-2022 influenza, seasonal, injectable Dr. Anne Heaton Work Phone: [facility] Work Phone: 06-28-2021 influenza, injectabl e, quadrivalent, preservative free Dr. Anne Heaton Work Phone: [facility] 06-28-2021 influenza, seasonal, injectable Dr. Anne Heaton Work Phone: [facility] Work Phone: 06-01-2020 influenza, injectabl e, quadrivalent, preservative free Dr. Anne Heaton Work Phone: [facility] 06-01-2020 influenza, seasonal, injectable Dr. Anne Heaton Work Phone: [facility] Work Phone: 07-16-2019 influenza, injectabl e, quadrivalent, preservative free Dr. Anne Heaton Work Phone: [facility] 07-16-2019 influenza, seasonal, injectable Dr. Anne Heaton Work Phone: [facility] Work Phone: 08-01-2018 influenza, injectabl e, quadrivalent, preservative free Dr. Anne Heaton Work Phone: [facility] 08-01-2018 influenza, seasonal, injectable Dr. Anne Heaton Work Phone: [facility] Work Phone: 07-11-2017 influenza, injectabl e, quadrivalent, preservative free Dr. Anne Heaton Work Phone: [facility] 07-11-2017 influenza, seasonal, injectable Dr. Anne Heaton Work Phone: [facility] Work Phone: 07-24-2016 influenza, injectabl e, quadrivalent, preservative free Dr. Anne Heaton Work Phone: [facility] 07-24-2016 influenza, seasonal, injectable Dr. Anne Heaton Work Phone: [facility] Work Phone: 07-19-2015 influenza, injectabl e, quadrivalent, preservative free Dr. Anne Heaton Work Phone: [facility] 07-19-2015 influenza, seasonal, injectable Dr. Anne Heaton Work Phone: [facility] Work Phone: 04-15-[address] Anne Heaton Work Phone: [facility] Payers Date Payer Category Payer Self-pay [id number] 2024 Unknown [id number] 2016 Private Health Insurance [facility] [id number] Private Health Insurance [id number] Unknown [id number] Unknown [facility] [id number] Unknown [id number] Unknown [id number] Unknown [id number] 62 Unknown [id number] 62 Unknown [id number] 62 Unknown [id number] 62 Unknown [id number] 62 Social History Date Type Detail Facility Start: 10-18-2021 End: 09-17-2023 Tobacco smoking status NHIS Unknown if ever smoked [facility] Start: 1995 Sex Assigned At Female [facility] Start: 10-13-2024 Tobacco smoking stat us NHIS Never smoked tobacco (finding) [facility] Progress note 04-08-2025 Note Date & Type Note Facility 04-08-2025 Progress note [facility] Progress note 04-08-2025 Note Date & Type Note Facility 04-08-2025 Progress note Note Date/Time April 08, 2025 9:1 9am [facility] [address] [place] [address]. [address] [place] [address] OFFICE VISIT Date of Service: 04/08/25 MR#: [id number] Acct: [id number] Name: UZMA HOROWITZ Rep #: [id number] : 1995 Provider: Dr. Maricel Ybarra MD Age/Sex: 29/F Location: [facility] Status: Signed Intake Vital Signs 03/12/25 15:33 04/08/25 09:05 Height 5 ft 3 in 5 ft 3 in Weight: 231 lb 4 oz 232 lb BMI 40.9 41.1 BP 132/86 H 119/80 Blood Pressure Location Rt brachial Position Sitting Respiration 17 Pulse 101 H Pulse Source Monitor Pulse Oximetry (%) 99 Oxygen Delivery Method room air Intake Visit Reasons: 2ND OPINION BREAST Chief Complaint: 2nd opinion breast Is patient in pain?: No Allergies No Known Allergies Allergy (Verified 04/08/25 09:06) Medications ?Medication ?Instructions ?Recorded ?Confirmed ?Type drospirenone 3 mg-ethinyl 1 tab PO DAILY #84 TABLETS 0 10/14/24 04/08/25 Rx estradiol 0.02 mg tablet (Vestura (28)) spironolactone 50 mg tablet 50 mg PO BID #180 TABLETS 10/14/24 04/08/25 Rx PFSH Medical History Cervical cancer screening PCOS (polycystic ovarian syndrome) Family History Grandfather Hypertension Diabetes Social History current occupational status: employed current occupation: [employer] Smoking Status: Never smoker alcohol intake: current details: social substance use type: does not use caffeine: Yes what type of physical activity do you participate in: aerobics frequency: 3-4 times per week seatbelt use: always do you feel safe at home: Yes additional social history: Single HPI HPI HPI: Patient is a 29-year-old female here with a breast mass on the right. This was found on ultrasound after she felt something in the upper area of her breast. This mass is in the 10 o'clock position. It is not in the area that she was feeling. She does not have any nipple discharge. She denies family history of breast cancer. ROS General General: No weight change, appetite, fatigue, colon cancer, breast cancer or weakness HEENT HEENT: No difficulty swallowing, eye injury, eye surgery, swollen glands or hoarseness Endo Endocrine: No thyroid disease, diabetes mellitus, thyroid cancer, Hair loss, heat intolerance or cold intolerance Skin Skin: No rash or changing moles Breast Breast: Yes right breast lump, breast pain and abnormal US; No left breast lump, nipple discharge, abnormal mammogram or breast enlargement Musc Musculoskeletal: No back problems, arthritis, rheumatoid arthritis, gout or joint pain Cardio Cardiovascular: No murmur, pacemaker, heart disease, atrial fibrillation, high blood pressure, heart attack, heart stent, palpitations, shortness of breath with exertion or chest pain Psych Psychiatric: No depression, anxiety or hearing voices Resp Respiratory: No shortness of breath, No sleep apnea, No cough, No COPD, No asthma, No emphysema and No wheezing Gastro Gastrointestinal: No abdominal pain, No nausea or vomiting, No diarrhea, No constipation, No blood in stool, No acid reflux, No hemorrhoids, No ulcers, No gallbladder problem and No black,tarry stools Leonardo Hematologic: No blood thinners, No blood disorders, No bleeding, No anemia and No blood clots Neuro Neurologic: No system reviewed and no additional complaints, except as documented, No as per HPI, No abnormal gait, No abnormal hearing, No abnormal movements, No abnormal speech, No behavioral changes, No burning sensations, No confusion, No convulsions, No disequilibrium, No dizziness, No localized weakness, No frequent falls, No headache(s), No lack of coordination, No loss ofvision, No memory loss, No numbness, No other visual disturbances, No radicular pain, No restless legs, No sensory deficit, No syncope, No tingling, No tremor(s), No weakness and No other Exam Const General: cooperative Orientation: alert and oriented x3 HENMT Head: normal to inspection Neck Neck: normal visual inspection and full ROM Chest Chest palpation & inspection: normal inspection of the chest Resp Effort & Inspection: normal respiratory effort Auscultation: clear to auscultation bilaterally Cardio Rate: regular rate Rhythm: regular rhythm GI Inspection: non-distended Palpation: soft and nontender Skin General: no rashes or lesions noted Neuro General: patient alert and patient oriented x3 Extrem General: full ROM Psych Appearance: grossly normal Mental Status: mental status grossly normal Assessment and Plan Assessment and Plan (1) Breast lump: Status: Acute Plan: The patient has a small benign-appearing breast mass in the right breast. It was given BI-RADS score of 3. She was sent here for second opinion. I agree with the radiologist read. There are no worrisome features to this that would necessitate biopsy. I recommend that we wait 6 months and repeat ultrasound to see if it is grown. Patient is agreeable. I reviewed her images with her and showed her images in PACS. Jayy Ybarra MD Pager: [facility] [address] [place] [address], [address] [place] [address] Office: Orders: Orders Breast Limited Unilateral 6 Months N63.0 - Unspecified lump in unspecified breast Coding Level of Care Code Off vis,new,level 3 Diagnoses Breast lump N63.0 04/08/25 0919 <Electronically signed by Jayy vigil MD> Date _ Jayy Ybarra MD Cosigner Signature: Date (if applicable) CC: ~ [employer] [facility] Work Phone: Radiology Diagnostic study note 03-25-2025 Note Date & Type Note Facility 03-25-2025 Radiology Diagnostic study note [facility] [address] [place] [address] Breast Limited Unilateral MR#: [id number] Acct: [id number] Name: UZMA HOROWITZ Rep #: [id number] : 1995 F 29 From: Sarah Jacobs MD PCP: Dr. Bruna Walker MD Status: [facility] Study:Breast Limited Unilateral Date of Exam: 03/25/25 Exam# [id number] Ordering Dr: aJnis Manzano [facility] EXAM: DIAG MAMM W/CAD, BILAT; BILAT BRST CARLOS STAND ALONE; BREAST LIMITED UNILATERAL 03/25/2025 CLINICAL HISTORY: 29-year-old female presents with palpable concern in the right breast. No family history of breast cancer. TECHNIQUE: DIAG MAMM W/CAD, BILAT; BILAT BRST CARLOS STAND ALONE; BREAST LIMITED UNILATERAL. COMPARISON: Baseline examination, no priors. FINDINGS: MAMMOGRAM: TISSUE DENSITY: There are scattered areas of fibroglandular density. Right breast: There is a triangle skin marker indicating the area of palpable concern in the upper-outer right breast. Underlying the skin marker are no definite mammographic findings. Left breast: There are no suspicious masses, grouped calcifications or architectural distortions in the left breast. ULTRASOUND: Ultrasound performed of the upper-outer quadrant of the right breast in the areaof patient's palpable concern demonstrates an circumscribed oval hypoechoic mass at 10 o'clock 5 cm from the nipple, measuring0.6 x 0.5 x 0.2 cm. US/Breast Limited Unilateral IMPRESSION: Right breast mass at 10 o'clock is probably benign. Recommend short interval six-month follow-up diagnostic ultrasound for further evaluation. OVERALL FINAL ASSESSMENT BI-RADS 3: PROBABLY BENIGN. RECOMMENDATION: 6 Month Follow-up A letter with findings and recommendations will be mailed to the patient. Reading Location: [id number] CC: KODI Manzano; Dr. Bruna Walker MD ~ Labor Economist: Signed [facility] Evaluation note 03-12-2025 Note Date & Type Note Facility 03-12-2025 Evaluation note Diagnosis Onset Date Resolution Breast lump acute March 12 3:26pm [facility] Work Phone: Evaluation note 03-12-2025 Note Date & Type Note Facility 03-12-2025 Evaluation note Diagnosis Onset Date Resolution Breast lump acute March 12 3:26pm Breast lump acute April 08, 025 8:55am [employer] [facility] Work Phone: Clinical Note 09-17-2023 Note Date & Type Note Facility 09-17-2023 Note [facility] Pap Smear Specimen Adequacy September 17, 2023 2:56pm Comment . Satisfactory for evaluation. No endocervical component is identified. Comment on above: Satisfactory for christie luation. No endocervical component is identified. Evaluation note Note Date & Type Note Facility Evaluation note No assessment information availa ble [facility] Work Phone: Evaluation note Note Date & Type Note Facility Evaluation note Diagnosis Onset Date Encounter for routine gyneco logical examination noneactive [facility] Work Phone: Reason for referral (narrative) Note Date & Type Note Facility Reason for referral (narrative) No reason for referral information available [facility] Work Phone: Chief Complaint and Reason for Visit Chief Complaint COVID-19 Chief Complaint 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) Reason for Visit Encounter for routin e gynecological examination Chief Complaint 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 METAL) FASTING Reason for Visit Encounter for routin e gynecological examination Chief Complaint Admit Date R breast lump/pain March 12, 2025 3:26 pm Chief Complaint Admit Date R breast lump/pain March 12, 2025 3:26 pm RT BREAST LUMP March 25, 2025 9:20 am Reason for Visit Admit Date Breast lump March 12, 2025 3:26 pm Chief Complaint Admit Date R breast lump/pain March 12, 2025 3:26 pm RT BREAST LUMP March 25, 2025 9:20 am 2ND OPINION BREAST April 08, 2025 8:5 5am Reason for Visit Admit Date Breast lump March 12, 2025 3:26 pm Breast lump April 08, 2025 8:5 5am Family History No Family History Records Found Relationship Condition Age at Onset Recorded Date/T [place] grandfather Hypertension Unknown Diabetes mellitus Unknown Summary Purpose Advance Directives No Advanced Directives Records Found Additional Source Comments Goals (unrecognized section and content) Goals may be documented in a n alternate sectionGoals may be documented in an alternate sectionGoals may be documented in an alternate sectionGoals may be documented in an alternate sectionGoals may be documented in an alternate sectionGoals may be documented in an alternate section Care Teams (unrecognized sec tion and content) Team Status: Active Member Role Status Dates Dr. Anne Heaton MD Family Provider Active Dr. Anne Heaton MD Primary Care Provider Active Team Status: Inactive Member Role Status Dates Dr. Anne Heaton MD Primary Care Provider, Referrin g Provider Active Dr. Margaux Guthrie DO Attending Provider Activ e Team Status: Inactive Member Role Status Dates Dr. Anne Heaton MD Primary Care Provider Active Dr. Margaux Guthrie DO Attending Provider, Refe rring Provider Active Team Status: Active Member Role Status Dates Dr. Anne Heaton MD Family Provider Active Dr. Bruna Walker MD Primary Care Provider Active Team Status: Inactive Member Role Status Dates Dr. Bruna Walker MD Primary Care Prov ider, Attending Provider, Referring Provider Active Team Status: Active Member Role/Relationship Status Dates Dr. Anne Heaton MD Family Provider Active Dr. Bruna Walker MD Primary Care Provider Active Team Status: Inactive Member Role/Relationship Status Dates Dr. Bruna Walker MD Primary Care Provider Active Start: March 12, 2025 End: March 12, 2025 Dr. Bruna Walker MD Referring Provider Active Start: March 12, 2025 End: March 12, 2025 KODI Sahu Attending Provider Active Start: March 12, 2025 End: March 12, 2025 Team Status: Active Member Role/Relationship Status Dates Dr. Bruna Walker MD Primary Care Provider Active Team Status: Inactive Member Role/Relationship Status Dates Dr. Bruna Walker MD Primary Care Provider Active Start: March 25, 2025 End: March 25, 2025 KODI Sahu Attending Provider Active Start: March 25, 2025 End: March 25, 2025 KODI Sahu Referring Provider Active Start: March 25, 2025 End: March 25, 2025 Team Status: Inactive Member Role/Relationship Status Dates Dr. Bruna Walker MD Primary Care Provider Active Start: April 08, 2025 End: April 08, 2025 Dr. Bruna Walker MD Referring Provider Active Start: April 08, 2025 End: April 08, 2025 Dr. Jayy Ybarra MD Attending Provider Active Start: April 08, 2025 End: April 08, 2025 INFORMATION SOURCE (unrecogn ized section and content) DATE CREATED AUTHOR 06/30/2025 [facility] FOR RECORDS PERTAINING TO PATIENTS WHO ARE OR HAVE BEEN ENROLLED IN A CHEMICAL DEPENDENCY/SUBSTANCEABUSE PROGRAM, SOME INFORMATION MAY BE OMITTED. This clinical summary was aggregated from multiple sources. Caution should be exercised in using it in the provision of clinical care. This summary normalizes information from multiple sources, and as a consequence, information in this document may materially change the coding, format and clinical context of patient data. In addition, data may be omitted in some cases. CLINICAL DECISIONS SHOULD BE BASED ON THE PRIMARY CLINICAL RECORDS. [email or web address] provides no warranty or guarantee of the accuracy or completeness of information in this document.
== END | disposition home or self-care (01) ==
LOC: SL 19:54
PROVIDERS: PCP Family Medicine; Referring Provider Family Medicine; Visit Provider Family Medicine
DX: G47.33 Obstructive sleep apnea (adult) (pediatric) (principal)
CPT/HCPCS: 95810